=== PATIENT | female | born 1970 | race African-American/Black ===

== ENCOUNTER 2019-01-08 10:40 | Emergency (ER) | payer SELFPAY ==
[2019-01-08 11:00] VITALS: BP 140/78; PULSE 82; TEMP 97.7; BMI 31.6
[2019-01-08] MEDS ORDERED: LIDOCAINE 5% TOPICAL PATCH TP ONE (11:28)
[2019-01-08] MEDS ORDERED: LIDOCAINE 5% TOPICAL PATCH ONE (11:36)
[2019-01-08] MEDS ORDERED: KETOROLAC TROMETHAMINE 60 MG/2 ML VIAL IM ONE (12:56)
--- NOTE | 2019-01-08 12:56 | PDOC ---
History of Present Illness - General Chief Complaint: Pain, Acute Stated Complaint: RT FOOT PAIN Time Seen by Provider: 01/08/19 10:57 History Source: Patient Exam Limitations: No Limitations Past History - Travel Traveled outside of the country in the last 30 days: No Close contact w/someone who was outside of country & ill: No - Past Medical History Allergies/Adverse Reactions: Allergies Allergy/AdvReac Type Severity Reaction Status Date / Time No Known Allergies Allergy Verified 01/08/19 10:56 Home Medications: Ambulatory Orders Ibuprofen 600 mg PO Q6H #30 tablet 01/08/19 Methocarbamol [Robaxin -] 500 mg PO BID #14 tablet 01/08/19 COPD: No - Psycho Social/Smoking Cessation Hx Smoking Status: Yes Smoking History: Former smoker Have you smoked in the past 12 months: Yes Number of Cigarettes Smoked Daily: 10 Information on smoking cessation initiated: Yes Review of Systems - Review of Systems Able to Perform ROS?: Yes Comments:: 01/08/19 12:56 CONSTITUTIONAL: Absent: fever, chills, diaphoresis, generalized weakness, malaise, loss of appetite GASTROINTESTINAL: Absent: abdominal pain, abdominal distension, nausea, vomiting, diarrhea, constipation, melena, hematochezia GENITOURINARY: Absent: dysuria, frequency, urgency, hesitancy, hematuria, flank pain, genital pain MUSCULOSKELETAL: Present: low back pain, R foot pain/leg pain Absent: arthralgia, joint swelling SKIN: Absent: rash, itching, pallor NEUROLOGIC: Absent: headache, focal weakness or paresthesias, dizziness, unsteady gait, seizure, mental status changes, bladder or bowel incontinence PSYCHIATRIC: Absent: anxiety, depression, suicidal or homicidal ideation, hallucinations. Is the patient limited Citizen [place] proficient: No *Physical Exam - Vital Signs Last Vital Signs Temp Pulse Resp BP Pulse Ox 97.7 F 82 16 140/78 99 01/08/19 10:50 01/08/19 10:50 01/08/19 10:50 01/08/19 10:50 01/08/19 10:50 - Physical Exam Comments: 01/08/19 12:56 GENERAL: Well developed, well nourished. Awake and alert. No acute distress. HEENT: Normocephalic, atraumatic. PERRLA, EOMI. No conjunctival pallor. Sclera are non- icteric. Moist mucous membranes. Oropharynx is clear. NECK: Supple. Full ROM. No JVD. Carotid pulses 2+ and symmetric, without bruits. No thyromegaly. No lymphadenopathy. CARDIOVASCULAR: Regular rate and rhythm. No murmurs, rubs, or gallops. Distal pulses are 2+ and symmetric. PULMONARY: No evidence of respiratory distress. Lungs clear to auscultation bilaterally. No wheezing, rales or rhonchi. ABDOMINAL: Soft. Non-tender. Non-distended. No rebound or guarding. No organomegaly. Normoactive bowel sounds. MUSCULOSKELETAL Normal range of motion at all joints. No bony deformities or tenderness. No CVA tenderness. EXTREMITIES: No cyanosis. No clubbing. No edema. No calf tenderness. SKIN: Warm and dry. Normal capillary refill. No rashes. No jaundice. NEUROLOGICAL: Alert, awake, appropriate. Cranial nerves 2-12 intact. No deficits to light touch and temperature in face, upper extremities and lower extremities. No motor deficits in the in face, upper extremities and lower extremities. Normoreflexic in the upper and lower extremities. Normal speech. Toes are down- going bilaterally. Gait is normal without ataxia. PSYCHIATRIC: Cooperative. Good eye contact. Appropriate mood and affect. ED Treatment Course - RADIOLOGY Radiology Studies Ordered: Category Date Time Status DUPLEX VASCUL US-1 LEG [US] Stat Ultrasound 01/08/19 11:28 Completed - Medications Given in the ED: ED Medications Discontinued Medications Generic Name Dose Route Start Last Admin Trade Name Freq PRN Reason Stop Dose Admin Lidocaine 1 patch 01/08/19 11:28 01/08/19 11:37 Lidoderm Patch - TP 01/08/19 11:29 1 patch ONCE ONE Administration Medical Decision Making - Medical Decision Making 01/08/19 12:57 The patient is a 48-year-old female with past medical history of low back pain Discharge - Discharge Information Clinical Impression/Diagnosis: Low back pain Qualifiers: Chronicity: acute Back pain laterality: right Sciatica presence: with sciatica Sciatica laterality: sciatica of right side Qualified Code(s): M54.41 - Lumbago with sciatica, right side Bakers cyst Qualifiers: Laterality: right Qualified Code(s): M71.21 - Synovial cyst of popliteal space [Luevano], right knee Condition: Stable Disposition: HOME - Admission No - Additional Discharge Information Prescriptions: Ibuprofen 600 mg PO Q6H #30 tablet Methocarbamol [Robaxin -] 500 mg PO BID #14 tablet - Follow up/Referral Referrals: Juan Downing MD [Staff Physician] - Scott Xavier MD [Staff Physician] - - Patient Discharge Instructions Patient Printed Discharge Instructions: Mer Singer, DI for Back Pain With Sciatica Additional Instructions: You have low back pain due to a muscle spasm. Please take ibuprofen 800 mg 3 times a day not to exceed 3000 mg a day. You were also prescribed Robaxin. Take this medication twice a day. Do not drive after taking this medication as it may make you sleepy. You may use warm compresses on your back to help with her symptoms. Please follow-up with your primary care doctor. If your symptoms do not resolve in 3-5 days, follow-up with orthopedics. A referral has been provided for you. Return to the emergency department if you have worsening back pain, bladder or bowel incontinence, numbness and tingling in her legs, changes in the way you walk, or any new or worsening symptoms. - Post Discharge Activity Work/Back to School Note: Back to Work
[2019-01-08] MEDS ORDERED: KETOROLAC TROMETHAMINE 60 MG/2 ML VIAL ONE (13:00)
== END 2019-01-08 13:10 | disposition home or self-care (01) ==
LOC: JERFT 10:40
PROC: 3E0233Z Introduction of Anti-inflammatory into Muscle, Percutaneous Approach (ICD-10-PCS; principal; 2019-01-08)
DX: M54.41 Lumbago with sciatica, right side (principal); M71.21 Synovial cyst of popliteal space [Baker], right knee; Z87.891 Personal history of nicotine dependence
CPT/HCPCS: 93971-TC; 99281-25

== ENCOUNTER 2022-04-29 12:10 | Emergency (ER) | payer OTHER ==
[2022-04-29 12:15] VITALS: TEMP 98; BMI 33.7
[2022-04-29] MEDS ORDERED: MECLIZINE HCL 25 MG TABLET (FP) PO ONE (12:52)
[2022-04-29] MEDS ORDERED: SODIUM CHLORIDE 0.9% 500 ML INFUS.BAG IV ONE (12:52)
[2022-04-29] MEDS ORDERED: ACETAMINOPHEN 1000 MG/100 ML BAG IVPB ONE (12:52)
[2022-04-29] MEDS ORDERED: MECLIZINE HCL 25 MG TABLET (FP) ONE (13:32)
[2022-04-29] MEDS ORDERED: ACETAMINOPHEN INJECTION 100 ML IVPB ONE (13:32)
[2022-04-29] MEDS ORDERED: KETOROLAC TROMETHAMINE 30 MG/1 ML VIAL IVPUSH ONE (13:49)
[2022-04-29] MEDS ORDERED: ONDANSETRON 4 MG/2 ML VIAL IVPUSH ONE (13:49)
[2022-04-29 14:08] LABS: BASO % 0.7 % (0-2.0); EOS % 4.3 % (0-4.5); HEMATOCRIT 41.5 % (32.4-45.2); LYMPH % 41.2 % (8-40); MCHC 33.8 g/dl (32.0-36.0); MEAN PLT VOLUME 8.8 fl (7.5-11.1); MONO % 7.5 % (3.8-10.2); NEUT % 46.3 % (42.8-82.8); PLATELET COUNT 227 10^3/uL (134-434); RBC 4.67 M/mm3 (3.60-5.2); RDW 12.8 % (11.6-15.6); WHITE BLOOD COUNT 4.2 K/mm3 (4.0-10.0)
[2022-04-29 14:27] LABS: ALBUMIN 3.8 g/dl (3.4-5.0); CALCIUM 8.8 mg/dL (8.5-10.1)
[2022-04-29 14:28] LABS: BLOOD UREA NITROGEN 10.7 mg/dL (7-18)
[2022-04-29 14:31] LABS: CREATININE 0.9 mg/dL (0.55-1.3)
[2022-04-29 14:32] LABS: BILIRUBIN,TOTAL 0.5 mg/dL (0.2-1); TOT PROT 7.4 g/dl (6.4-8.2)
[2022-04-29 15:51] LABS: URINE APPEARANCE CLEAR; URINE BILIRUBIN NEGATIVE (NEGATIVE); URINE COLOR YELLOW; URINE GLUCOSE (UA) NEGATIVE (NEGATIVE); URINE KETONE NEGATIVE (NEGATIVE); URINE LEUK ESTERASE NEGATIVE (NEGATIVE); URINE NITRITE NEGATIVE (NEGATIVE); URINE PROTEIN NEGATIVE (NEGATIVE); URINE UROBILINOGEN 0.2 mg/dL (0.2-1.0)
[2022-04-29 16:17] VITALS: BP 120/70; PULSE 74; RESP 16
== END 2022-04-29 16:17 | disposition home or self-care (01) ==
LOC: JER 12:10
PROC: 3E033NZ Introduction of Analgesics, Hypnotics, Sedatives into Peripheral Vein, Percutaneous Approach (ICD-10-PCS; principal; 2022-04-29)
PROC: 3E033GC Introduction of Other Therapeutic Substance into Peripheral Vein, Percutaneous Approach (ICD-10-PCS; 2022-04-29)
PROC: 3E033GC Introduction of Other Therapeutic Substance into Peripheral Vein, Percutaneous Approach (ICD-10-PCS; 2022-04-29)
DX: R42 Dizziness and giddiness (principal)
CPT/HCPCS: 36415; 71046-TC-FY; 80053; 81003; 85025; 87086; 99284-25